=== PATIENT | female | born 1975 ===

== ENCOUNTER → 2016-11-23 | Outpatient (CLI) | payer OTHER | LOC: FCPNEURO 22:00 | PROVIDERS: ATTEND Student in an Organized Health Care Education/Training Program | DX: G47.33 Obstructive sleep apnea (adult) (pediatric) (principal) ==

== ENCOUNTER 2017-05-03 16:05 | Emergency (ER) | payer OTHER ==
--- NOTE | 2017-05-03 16:52 | EDPHY ---
H & P Time Seen by Provider: 05/03/17 16:41 HPI/ROS: CHIEF COMPLAINT: Vaginal bleeding HISTORY OF PRESENT ILLNESS: Patient is 10 weeks . She is 4 para 2 it started cramping yesterday, having some bleeding today. She used a single pad but "has been afraid to look "and does not know exactly how much she is bleeding. Does not know she has passed clots. She was dizzy and lightheaded yesterday but not today. Bleeding appears to be light. Not associated with syncope. She is Rh negative and got RhoGAM with previous pregnancies. REVIEW OF SYSTEMS: Eye: no change in vision ENT: no sore throat Cardiac: no chest pain or syncope Pulmonary: no cough or SOB Abdomen: Pelvic cramping but no vomiting Musculoskeletal: no back pain Skin: no rash Neuro: no headache Constitutional: no fever : no urinary symptoms, no recent sexual intercourse or vaginal foreign body. A comprehensive 10 point review of systems is otherwise negative aside from elements mentioned in the history of present illness. PAST MEDICAL HISTORY: 4 para 2 Social history: Nonsmoker General Appearance: Alert and conversant, cooperative. Eyes: No scleral icterus. ENT, Mouth: Normal mucous membranes. Respiratory: Normal respiratory effort, breath sounds equal, lungs are clear to auscultation. Cardiovascular: Regular rate and rhythm. Gastrointestinal: Abdomen is soft and non tender. Neurological: Alert, face symmetric, normal motor and sensory in extremities. Skin: Warm and dry, no rashes. Musculoskeletal: No peripheral edema. Psychiatric: Not agitated. Emergency Department course/MDM: Patient is O negative, rationale for RhoGAM discussed and consented. Plan for ultrasound and RhoGAM in consultation with her light adjuster. The patient said she did have an ultrasound in the office 2 weeks ago which showed an 8 week ro with a heartbeat present. 1817: Ultrasound per Kermit shows 11+ 3 week IUP with heart rate 160 and subchorionic hemorrhage. Results discussed with the patient, call is placed to her light adjuster. Discussed with Dr. Craven; RhoGAM and discharge. I think vaginal trauma unlikely. Patient is warned that she could be having an early miscarriage. Smoking Status: Never smoked Constitutional: Initial Vital Signs Temperature (C) 36.9 C 05/03/17 16:08 Heart Rate 86 05/03/17 16:08 Respiratory Rate 16 05/03/17 16:08 Blood Pressure 123/85 H 05/03/17 16:08 O2 Sat (%) 97 05/03/17 16:08 O2 Delivery Mode Room Air Allergies/Adverse Reactions: No Known Allergies Allergy (Verified 05/03/17 16:07) Home Medications: Medication Instructions Recorded Vit27&Calcium/Iron/FA 1 each PO 07/24/12 [] Medical Decision Making - Diagnostics Imaging Results: Imaging Impressions Obstetrics Ultrasound 05/03/17 16:52 Impression: 1. Single viable intrauterine gestation with size consistent with LMP dates. 2. FHR = 160 BPM. 3. Recommend followup anatomy scan between 19 and 20 weeks gestation. 4. Small subchorionic hemorrhage measuring 2.1 x 1.8 x 1.8 cm. 5. No ovarian torsion or significant free fluid. 6. Left ovarian 3.7 x 3.6 x 3.2 cm simple cyst. Findings and recommendations discussed with Emergency Department physician, Manny Chapman at 1811 hour, 05/03/2017. Final report concurs with initial preliminary interpretation. Differential Diagnosis: Differential considered including but not limited to ectopic, miscarriage, threatened miscarriage, coagulopathy, bleeding from trauma. - Data Points Laboratory Results: Laboratory Results 05/03/17 18:05 05/03/17 05/03/17 18:05 18:05 WBC 5.71 10^3/uL 10^3/uL (3.80-9.50) RBC 4.14 10^6/uL L 10^6/uL (4.18-5.33) Hgb 13.5 g/dL g/dL (12.6-16.3) Hct 39.5 % % (38.0-47.0) MCV 95.4 fL fL (81.5-99.8) MCH 32.6 pg pg (27.9-34.1) MCHC 34.2 g/dL g/dL (32.4-36.7) RDW 13.1 % % (11.5-15.2) Plt Count 221 10^3/uL 10^3/uL (150-400) MPV 10.2 fL fL (8.7-11.7) Neut % (Auto) 68.0 % % (39.3-74.2) Lymph % (Auto) 22.9 % % (15.0-45.0) [place] % (Auto) 7.0 % % (4.5-13.0) Eos % (Auto) 1.4 % % (0.6-7.6) Baso % (Auto) 0.5 % % (0.3-1.7) Nucleat RBC Rel Count 0.0 % % (0.0-0.2) Absolute Neuts (auto) 3.88 10^3/uL 10^3/uL (1.70-6.50) Absolute Lymphs (auto) 1.31 10^3/uL 10^3/uL (1.00-3.00) Absolute Monos (auto) 0.40 10^3/uL 10^3/uL (0.30-0.80) Absolute Eos (auto) 0.08 10^3/uL 10^3/uL (0.03-0.40) Absolute Basos (auto) 0.03 10^3/uL 10^3/uL (0.02-0.10) Absolute Nucleated RBC 0.00 10^3/uL 10^3/uL (0-0.01) Immature Gran % 0.2 % % (0.0-1.1) Immature Gran # 0.01 10^3/uL 10^3/uL (0.00-0.10) Patient ABO/Rh O NEGATIVE Antibody Screen NEGATIVE Departure - Departure Disposition: Home, Routine, Self-Care Clinical Impression: Threatened miscarriage Condition: Good Instructions: Rh (By injection), Threatened Miscarriage (ED) Referrals: Keyona Craven DO [Doctor of Osteopathy] - 1 day without fail
[2017-05-03 18:21] LABS: PLATELET COUNT 221 10^3/uL (150-400)
[2017-05-03 19:46] VITALS: BP 113/73; PULSE 66; RESP 18; TEMP 98.2; O2SAT 98
== END 2017-05-03 19:46 | disposition home or self-care (01) ==
DX: O20.0 Threatened abortion (principal); Z3A.10 10 weeks gestation of pregnancy

== ENCOUNTER → 2017-07-14 | Outpatient (CLI) | payer OTHER | LOC: FIMAGING 07:28 | PROVIDERS: ATTEND Obstetrics & Gynecology | DX: O09.522 Supervision of elderly multigravida, second trimester (principal); O35.8XX0 Maternal care for other (suspected) fetal abnormality and damage, not applicable or unspecified; Z3A.20 20 weeks gestation of pregnancy ==

== ENCOUNTER → 2017-10-20 | Outpatient (CLI) | payer OTHER | LOC: FIMAGING 12:43 | PROVIDERS: ATTEND Obstetrics & Gynecology | DX: O09.523 Supervision of elderly multigravida, third trimester (principal); Z3A.34 34 weeks gestation of pregnancy ==

== ENCOUNTER 2018-06-09 16:08 | Emergency (ER) | payer OTHER ==
[2018-06-09] MEDS ORDERED: NS 1,000 ML IV ONE (16:38)
--- NOTE | 2018-06-09 16:38 | EDPHY ---
H & P Stated Complaint: 3 weeks uri/ this week st/chest congestion/bilateral; calf tenderness. Time Seen by Provider: 06/09/18 16:17 HPI/ROS: 42 yo F presents complaining of several weeks of cough, sore throat, runny nose and then today she noticed several red bumps on her lower legs. She has had occasional fevers and chills. Review of systems General no fever no chills no weakness HEENT no eye pain no eye discharge. No eye redness, positive sore throat Respiratory positive cough, positive shortness of breath Cardiac no chest pain, no peripheral edema GI no abdominal pain, no diarrhea, no constipation, no nausea, no vomiting no flank pain, no hematuria, no dysuria Musculoskeletal no myalgias, no joint pain Heme no easy bruising, no easy bleeding Endo no polyuria, no polydipsia Skin positive rashes, no pruritus Neuro no syncope, no dizziness, no headaches Psych is no suicidal ideation, no homicidal ideation Source: Patient - Personal History LMP (Females 10-55): Unknown Current Tetanus Diphtheria and Acellular Pertussis (TDAP): Yes - Medical/Surgical History Hx Asthma: No Hx Chronic Respiratory Disease: No Hx Diabetes: No Hx Cardiac Disease: No Hx Renal Disease: No Hx Cirrhosis: No Hx Alcoholism: No Hx HIV/AIDS: No Hx Splenectomy or Spleen Trauma: No Other PMH: denies - Family History Significant Family History: No pertinent family hx - Social History Smoking Status: Never smoked Alcohol Use: None Drug Use: None - Physical Exam Exam: 42-year-old female alert and oriented in no acute distress, appears ill, febrile to 38.1 Atraumatic normocephalic Extraocular muscles intact, conjunctivae without erythema, anicteric Oropharynx Positive erythema, no exudate no swelling Neck mild anterior cervical lymphadenopathy Lungs clear to auscultation , diminished at left base Heart regular rate and rhythm without murmur rub or gallop Abdomen NABS soft nontender Extremities Bilateral lower extremities with multiple erythematous nodules approximately a 1 -2 cm in size scattered on both calves Non fluctuant No lymphangitic streaks Constitutional: Initial Vital Signs Temperature (C) 38.1 C 06/09/18 16:15 Heart Rate 100 06/09/18 16:15 Respiratory Rate 18 06/09/18 16:15 Blood Pressure 111/74 06/09/18 16:15 O2 Sat (%) 92 06/09/18 16:15 O2 Delivery Mode Room Air Allergies/Adverse Reactions: No Known Allergies Allergy (Verified 06/09/18 16:19) Home Medications: Medication Instructions Recorded Vit27&Calcium/Iron/FA 1 each PO 07/24/12 [] Acetaminophen [Tylenol 325mg (*)] 650 mg PO Q6HRS tab 11/09/17 Docusate Sodium [Colace 100 MG (*)] 100 mg PO BID PRN cap 11/09/17 Hydrocortisone 0.5% 1 dinesh TP QID PRN cream 11/09/17 [Hydrocortisone 0.5% cream (*)] Iron Polysacch/Iron Heme Polyp 28 mg PO BID #60 tab 11/09/17 [Bifera] oxyCODONE IR [Oxycodone Ir (*)] 5 mg PO Q4HRS PRN #20 tab 11/09/17 Cefpodoxime Proxetil [Vantin] 200 mg PO BID 14 Days #28 tab 06/09/18 Medical Decision Making - Diagnostics Imaging Results: Imaging Impressions Chest X-Ray 06/09/18 16:39 Impression: Left lower lobe airspace consolidation, most compatible with pneumonia. ED Course/Re-evaluation: Patient seen and evaluated for cough and bilateral calf rash IV established Lab sent Chest x-ray obtained Chest x-ray positive for left lower lobe consolidation The patient given ceftriaxone 2 g IV piggyback CBC unremarkable CRP and sed rate markedly elevated Blood culture sent Metabolic panel within normal limits, no acidosis Lactate normal Impression/plan Community-acquired pneumonia left lower lobe Erythema nodosum Patient is currently [id number] only antibiotic safe with Home on cefpodoxime 200 twice daily times 14 days Patient currently without a primary care physician she has a primary OBGYN but has not needed a primary care for some time Given the internal medicine group at [facility] who is listed as on-call on the ED call schedule She was also given the number of the infectious disease doctor tree surgeon. Differential Diagnosis: Differential diagnosis considered but not limited to Influenza, streptococcal pharyngitis, pneumonia, bronchitis, erythema nodosum - Data Points Laboratory Results: Laboratory Results 06/09/18 16:53 06/09/18 06/09/18 06/09/18 17:01 17:01 16:53 Hct ESR POC Sodium 141 mEq/L mEq/L (135-145) POC Potassium 3.7 mEq/L mEq/L (3.3-5.0) POC Chloride 106.0 mEq/L mEq/L (97-110) POC Total CO2 29 mEq/L mEq/L (22-31) POC BUN 7 mg/dL mg/dL (7-23) POC Creatinine 1.0 mg/dL mg/dL (0.6-1.0) POC Glucose 98 mg/dL mg/dL (70-100) POC Lactic Acid Randal 0.7 mmol/L mmol/L (0.7-2.1) POC Calcium 9.3 mg/dL mg/dL (8.5-10.4) POC Total Bilirubin 0.6 mg/dL mg/dL (0.1-1.4) POC AST 26 IU/L IU/L (14-46) POC ALT 20 IU/L IU/L (9-52) POC Alk Phosphatase 68 IU/L IU/L (38-126) C-Reactive Protein 73.9 mg/L H mg/L (<10.0) POC Total Protein 7.8 g/dL g/dL (6.3-8.2) POC Albumin 3.1 g/dL L g/dL (3.5-5.0) Streptozyme 183 IU/mL IU/mL (<=200) 06/09/18 16:53 Hct 34.0 % L % (38.0-47.0) ESR 69 MM/HR H MM/HR (0-20) POC Sodium POC Potassium POC Chloride POC Total CO2 POC BUN POC Creatinine POC Glucose POC Lactic Acid Randal POC Calcium POC Total Bilirubin POC AST POC ALT POC Alk Phosphatase C-Reactive Protein POC Total Protein POC Albumin Streptozyme Medications Given: Discontinued Medications Acetaminophen (Tylenol) 1,000 mg PO EDNOW ONE Stop: 06/09/18 16:40 Last Admin: 06/09/18 16:55 Dose: 1,000 mg Sodium Chloride (Ns) 1,000 mls @ 0 mls/hr IV ONCE ONE PRN Reason: Wide Open Stop: 06/09/18 16:39 Last Admin: 06/09/18 16:59 Dose: 1,000 mls Ceftriaxone Sodium 2 gm/ (Sodium Chloride) 50 mls @ 100 mls/hr IV EDNOW ONE PRN Reason: Protocol Stop: 06/09/18 18:14 Last Admin: 06/09/18 18:54 Dose: 50 mls Point of Care Test Results: CBC CBC Collection Date 06/09/18 CBC Collection Time 16:43 WBC 8.17 RBC 3.61 HGB 10.7 HCT 34.5 PLT 293 Neut # 5.74 Neut 70.3 LYMPH # 1.22 LYMPH 14.9 MCV 95.6 Chemistry 06/09/18 17:01 POC Sodium 141 mEq/L mEq/L (135-145) POC Potassium 3.7 mEq/L mEq/L (3.3-5.0) POC Chloride 106.0 mEq/L mEq/L (97-110) POC Total CO2 29 mEq/L mEq/L (22-31) POC BUN 7 mg/dL mg/dL (7-23) POC Creatinine 1.0 mg/dL mg/dL (0.6-1.0) POC Glucose 98 mg/dL mg/dL (70-100) POC Calcium 9.3 mg/dL mg/dL (8.5-10.4) POC Total Bilirubin 0.6 mg/dL mg/dL (0.1-1.4) POC AST 26 IU/L IU/L (14-46) POC ALT 20 IU/L IU/L (9-52) POC Alk Phosphatase 68 IU/L IU/L (38-126) POC Total Protein 7.8 g/dL g/dL (6.3-8.2) POC Albumin 3.1 g/dL L g/dL (3.5-5.0) Blood Gas/Lactic Acid-Venous 06/09/18 17:01 POC Lactic Acid Randal 0.7 mmol/L mmol/L (0.7-2.1) Influenza PCR Flu Nasal Swab Collection Date 06/09/18 Flu Nasal Swab Collection Time 16:45 Influenza A Result Not Detected Influenza B Result Not Detected Strep Strep Throat Swab Collection 06/09/18 Date Strep Throat Swab Swab 16:45 Collection Time Strep Result Not Detected Departure - Departure Disposition: Home, Routine, Self-Care Clinical Impression: Pneumonia, Erythema nodosum Condition: Good Instructions: Pneumonia (ED) Referrals: NONE *PRIMARY CARE P,. [Primary Care Provider] - As per Instructions Jillian Fink MD [Medical Doctor] - As per Instructions Frank Sharma MD [Medical Doctor] - As per Instructions Prescriptions: Cefpodoxime Proxetil [Vantin] 200 mg PO BID 14 Days #28 tab
[2018-06-09] MEDS ORDERED: ACETAMINOPHEN 500 MG TAB PO ONE (16:39)
[2018-06-09 19:56] VITALS: BP 105/63
== END 2018-06-09 19:55 | disposition home or self-care (01) ==
LOC: CED 16:08
DX: J18.1 Lobar pneumonia, unspecified organism (principal); L52 Erythema nodosum
CPT/HCPCS: 71046-PO; 80053-ER; 83605-ER; J0696